=== PATIENT | female | born 1955 | race Caucasian/White ===

== ENCOUNTER 2016-12-03 22:59 | Inpatient (IN) | payer OTHER ==
[~2016-12-03] VITALS: Ht 160 cm; Wt 75.0 kg
[~2016-12-03 22:59] MED LIST: AMBIEN10 MG PO; COL100 PO; LEVOTHYROXINE0.1 M2 PO; NOR10T PO; NORCO1 TAB PO; PREVACID15 MG PO; ZOCOR10 MG PO
[2016-12-04 02:26] LABS: BASOPHIL % 0.1 % (0-2); PLATELET COUNT 232 x10^3mcL (130-400); RED CELL DISTRIBUTION WIDTH 13.6 % (11.5-14.5)
[2016-12-04 02:26] LABS: microscopic required? YES; urine erythrocyte 2+ (NEGATIVE)
[2016-12-04 02:33] LABS: CARBON DIOXIDE 31.2 mmol/L (21-32); CHLORIDE SERUM 102 mmol/L (98-107); CREATININE SERUM 0.7 mg/dL (0.6-1.0); GFR1 > 60 mL/min; GLUCOSE SERUM 122 mg/dL (74-106); POTASSIUM SERUM 3.5 mmol/L (3.5-5.1); SODIUM SERUM 140 mmol/L (136-145)
[2016-12-04 02:37] LABS: ALBUMIN 3.9 g/dL (3.4-5.0); ALKALINE PHOSPHATASE 78 U/L (46-116); ALT/SGPT 23 U/L (14-59); AST/SGOT 20 U/L (15-37); BILIRUBIN TOTAL 0.63 mg/dL (0.20-1.00); LIPASE 78 IU/L (73-393); TOTAL PROTEIN, SERUM 7.2 g/dL (6.4-8.2)
[2016-12-04 02:39] LABS: AMYLASE 23 U/L (25-115)
[2016-12-04 07:06] LABS: CHOLESTEROL/HDL RATIO 3.1
[2016-12-04 07:10] LABS: T3 TOTAL 0.95 ng/mL
[2016-12-04 07:13] LABS: FREE T4 1.1 ng/dL (0.76-1.46); FREE THYROXINE INDEX 3.9 ug/dL (1.4-4.5); T4(THYROXINE) 10.5 ug/dL (4.7-13.3)
[2016-12-04 09:05] VITALS: BP 141/75
[2016-12-04 09:23] VITALS: Ht 160 cm; Wt 75.0 kg
[2016-12-04 13:21] VITALS: BP 122/83
[2016-12-04 17:14] VITALS: BP 132/71
[2016-12-04 21:37] VITALS: BP 141/88
[2016-12-05 06:04] VITALS: BP 135/76
[2016-12-05 07:13] LABS: BASOPHIL % 0.5 % (0-2); PLATELET COUNT 185 x10^3mcL (130-400); RED CELL DISTRIBUTION WIDTH 13.9 % (11.5-14.5)
[2016-12-05 07:26] LABS: CALCIUM 8.3 mg/dL (8.5-10.1); CARBON DIOXIDE 26.7 mmol/L (21-32); CHLORIDE SERUM 108 mmol/L (98-107); CREATININE SERUM 0.7 mg/dL (0.6-1.0); GFR1 > 60 mL/min; GLUCOSE SERUM 80 mg/dL (74-106); POTASSIUM SERUM 3.9 mmol/L (3.5-5.1); SODIUM SERUM 142 mmol/L (136-145)
[2016-12-05 10:39] VITALS: BP 133/75
[2016-12-05 13:47] VITALS: BP 140/77
[2016-12-05 18:54] VITALS: BP 135/73
[2016-12-05 22:38] VITALS: BP 147/104
[2016-12-05 22:39] VITALS: BP 161/84
[2016-12-06 06:15] VITALS: BP 156/80
[2016-12-06 06:58] LABS: BASOPHIL % 0.5 % (0-2); PLATELET COUNT 203 x10^3mcL (130-400); RED CELL DISTRIBUTION WIDTH 13.6 % (11.5-14.5)
[2016-12-06 08:11] LABS: CALCIUM 8.2 mg/dL (8.5-10.1); CARBON DIOXIDE 24.4 mmol/L (21-32); CHLORIDE SERUM 108 mmol/L (98-107); CREATININE SERUM 0.6 mg/dL (0.6-1.0); GFR1 > 60 mL/min; GLUCOSE SERUM 81 mg/dL (74-106); MAGNESIUM 1.7 mg/dL (1.8-2.4); PHOSPHOROUS 3.2 mg/dL (2.5-4.9); POTASSIUM SERUM 3.8 mmol/L (3.5-5.1); SODIUM SERUM 142 mmol/L (136-145)
[2016-12-06 10:35] VITALS: BP 123/76
[2016-12-06] MEDS ORDERED: MIRALAX17 GM/Dose PO (13:08)
[2016-12-06] MEDS ORDERED: DUCODYL5 MG PO (13:12)
[2016-12-06 13:36] VITALS: BP 123/76
== END 2016-12-06 15:05 | disposition home or self-care (01) | DRG 247 ==
LOC: ED 22:59 → DU 12-04 05:54
PROVIDERS: Emergency Medicine; Family Medicine; Internal Medicine; ADMIT Family Medicine
PROC: 0DBN8ZZ Excision of Sigmoid Colon, Via Natural or Artificial Opening Endoscopic (ICD-10-PCS; 2016-12-06)
PROC: 0DBH8ZZ Excision of Cecum, Via Natural or Artificial Opening Endoscopic (ICD-10-PCS; principal; 2016-12-06 08:00)
PROC: 0DBK8ZZ Excision of Ascending Colon, Via Natural or Artificial Opening Endoscopic (ICD-10-PCS; 2016-12-06 08:00)
PROC: 0DBF8ZZ Excision of Right Large Intestine, Via Natural or Artificial Opening Endoscopic (ICD-10-PCS; 2016-12-06 08:00)
DX: K56.41 Fecal impaction (principal); F11.20 Opioid dependence, uncomplicated; I10 Essential (primary) hypertension; N39.0 Urinary tract infection, site not specified; K57.90 Diverticulosis of intestine, part unspecified, without perforation or abscess without bleeding; D12.5 Benign neoplasm of sigmoid colon; D12.0 Benign neoplasm of cecum; D12.2 Benign neoplasm of ascending colon; D12.4 Benign neoplasm of descending colon; E78.00 Pure hypercholesterolemia, unspecified; E89.0 Postprocedural hypothyroidism; M79.7 Fibromyalgia; M19.90 Unspecified osteoarthritis, unspecified site; M54.5 Low back pain; G89.29 Other chronic pain; Z79.891 Long term (current) use of opiate analgesic; Z87.891 Personal history of nicotine dependence; Z68.29 Body mass index [BMI] 29.0-29.9, adult
CPT/HCPCS: 45378; 83880; 84439; J1200; J1610; J1956; J2250; J2270; J2310; J2405; J3010; J3490; J7030; Q0092; Q0163; Q9966; Q9967

== ENCOUNTER 2018-08-19 13:42 | Inpatient (IN) | payer OTHER ==
[~2018-08-19] VITALS: Ht 160 cm; Wt 76.8 kg
[~2018-08-19 13:42] MED LIST changes: +DUCODYL5 MG PO; +MIRALAX17 GM/Dose PO
[2018-08-19 13:49] VITALS: Ht 160 cm; Wt 76.8 kg
[2018-08-19 14:24] LABS: BASOPHIL % 0.6 % (0-2); PLATELET COUNT 244 x10^3mcL (130-400)
[2018-08-19 14:26] LABS: RED CELL DISTRIBUTION WIDTH 14.8 % (11.5-14.5)
[2018-08-19 14:36] LABS: CALCIUM 9.2 mg/dL (8.5-10.1); CARBON DIOXIDE 26.6 mmol/L (21-32); CHLORIDE SERUM 104 mmol/L (98-107); CREATININE SERUM 0.8 mg/dL (0.6-1.0); GFR1 > 60 mL/min; GLUCOSE SERUM 98 mg/dL (74-106); POTASSIUM SERUM 3.6 mmol/L (3.5-5.1); SODIUM SERUM 139 mmol/L (136-145)
[2018-08-19 14:41] LABS: ALKALINE PHOSPHATASE 88 U/L (46-116); ALT/SGPT 43 U/L (14-59); AST/SGOT 24 U/L (15-37); BILIRUBIN TOTAL 0.4 mg/dL (0.20-1.00); TOTAL PROTEIN, SERUM 7.8 g/dL (6.4-8.2)
[2018-08-19 16:36] LABS: MAGNESIUM 2.2 mg/dL (1.8-2.4); PHOSPHOROUS 3.8 mg/dL (2.5-4.9)
[2018-08-19 16:37] LABS: CHOLESTEROL/HDL RATIO 2.8; T3 TOTAL 0.67 ng/mL
[2018-08-19 16:42] LABS: FREE T4 0.96 ng/dL (0.76-1.46); T4(THYROXINE) 8.9 ug/dL (4.7-13.3)
[2018-08-19 17:07] VITALS: BP 147/81
[2018-08-19 21:14] VITALS: BP 99/61
[2018-08-20 05:28] VITALS: BP 108/61
[2018-08-20 07:10] LABS: CALCIUM 8.8 mg/dL (8.5-10.1); CARBON DIOXIDE 27.2 mmol/L (21-32); CHLORIDE SERUM 106 mmol/L (98-107); CREATININE SERUM 0.8 mg/dL (0.6-1.0); GFR1 > 60 mL/min; GLUCOSE SERUM 83 mg/dL (74-106); MAGNESIUM 1.9 mg/dL (1.8-2.4); PHOSPHOROUS 4.3 mg/dL (2.5-4.9); POTASSIUM SERUM 4.5 mmol/L (3.5-5.1); SODIUM SERUM 142 mmol/L (136-145)
[2018-08-20 07:28] LABS: BASOPHIL % 0.8 % (0-2); PLATELET COUNT 225 x10^3mcL (130-400)
[2018-08-20 08:12] VITALS: BP 148/71
[2018-08-20] MEDS ORDERED: NITROSTAT0.4 MG SL (10:44)
[2018-08-20 10:50] VITALS: BP 148/71
== END 2018-08-20 13:08 | disposition home or self-care (01) | DRG 199 ==
LOC: ED 13:42 → DU 15:41
PROVIDERS: Emergency Medicine; ADMIT Internal Medicine
DX: I10 Essential (primary) hypertension (principal); E78.5 Hyperlipidemia, unspecified; M06.9 Rheumatoid arthritis, unspecified; M79.7 Fibromyalgia; Z87.891 Personal history of nicotine dependence; Z68.25 Body mass index [BMI] 25.0-25.9, adult
CPT/HCPCS: 83880; 84439; J3490; Q0092

== ENCOUNTER 2020-01-11 11:46 | Inpatient (IN) | payer OTHER ==
[~2020-01-11] VITALS: Ht 170.2 cm; Wt 75.7 kg
[~2020-01-11 11:46] MED LIST changes: +NITROSTAT0.4 MG SL
[2020-01-11 11:49] VITALS: Ht 170.2 cm; Wt 75.7 kg
--- NOTE | 2020-01-11 12:05 | NUR ---
[facility] BEDSIDE FOR EKG
--- NOTE | 2020-01-11 12:08 | NUR ---
PT BIB DAUGHTER C/O CHEST PAIN X 3DAYS THAT HAS WORSENED TODAY. PT REPORTS "I HAVE BEEN HAVING THIS ISSUE FOR SOME YEARS NOW. IT FEELS LIKE A JOLT/STABBING LIKE SENSATION. I TOOK ONE NITRO PILL 0.4MG 1HR BEFORE I GOT HERE AND ITS NOT HELPING". PT DENIES ANY N/V/D OR FURTHER INJURY AT THIS TIME. PLACED ON FULL CM, NSR NOTED. IV ESTBALISHED TO LAC. AWAITING MD TAVERAS. WILL CONTINUE TO MONITOR.
--- NOTE | 2020-01-11 12:15 | NUR ---
MD MARLOW AT [facility] OR [facility] AT THIS TIME.
[2020-01-11 12:38] LABS: BASOPHIL % 0.8 % (0-2); PLATELET COUNT 271 x10^3mcL (130-400)
[2020-01-11 12:40] LABS: RED CELL DISTRIBUTION WIDTH 14.9 % (11.5-14.5)
--- NOTE | 2020-01-11 12:42 | NUR ---
MEDIATED PT PER MD ORDERS, PLEASE SEE EMR. PT AMUBLATED TO RESTROOM WITH STEADY GAIT. NO DISTRESS NOTED. WILL CONTINUE TO MONITOR.
--- NOTE | 2020-01-11 13:21 | NUR ---
MEDICATED PT PER MD ORDERS, PLEASE SEE EMR. WILL CONTINUE TO MONITOR.
[2020-01-11 13:26] LABS: ALBUMIN 3.8 g/dL (3.4-5.0); ALKALINE PHOSPHATASE 73 U/L (46-116); ALT/SGPT 26 U/L (14-59); AST/SGOT 20 U/L (15-37); BILIRUBIN TOTAL 0.3 mg/dL (0.20-1.00); CALCIUM 9.1 mg/dL (8.5-10.1); CARBON DIOXIDE 25.4 mmol/L (21-32); CHLORIDE SERUM 106 mmol/L (98-107); CREATININE SERUM 0.8 mg/dL (0.6-1.0); GFR1 > 60 mL/min; GLUCOSE SERUM 100 mg/dL (74-106); LIPASE 116 IU/L (73-393); POTASSIUM SERUM 3.7 mmol/L (3.5-5.1); SODIUM SERUM 143 mmol/L (136-145); TOTAL PROTEIN, SERUM 7.1 g/dL (6.4-8.2)
--- NOTE | 2020-01-11 13:45 | NUR ---
MD MARLOW AT BEDSIDE AT THIS TIME DISCUSSING PLAN OF CARE. AWAITING FURTHER ORDERS.
[2020-01-11] MEDS ORDERED: NITROGLYCERIN0.4 MG SL (13:47)
[2020-01-11] MEDS ORDERED: SYN15 PO (13:47)
[2020-01-11] MEDS ORDERED: NORCO 10-325 T1 EACH PO (13:47)
[2020-01-11 14:53] VITALS: BP 133/77
--- NOTE | 2020-01-11 14:53 | NUR ---
RECEIVED FROM ER VIA [facility]AILEY PRITCHETT. WALKED FROM HALLWAY TO BED WITH MINIMAL ASSISTANCE. NO SOB NOTED. TELE# [address], NSR WITH DEPRESSED T WAVE. BP 133/77, HR 67, RR 18, O2SAT 98% ON ROOM AIR. STATED CHEST PAIN SIBSIDED BUT STILL HAVING SHARP PAIN INTERMITTENTLY 4/10 ON PAIN SCALE. LUNG SOUND CTA. ABD SOFT AND ACTIVE, LAST BM THIS MORNING. STATED VOIDS FREELY. NO EDEMA OR SKIN BREAKDOWN NOTED. S/L TO LAC INTACT AND PATENT. ORIENTING TO ROOM ENVIRONMENT. CALL LIGHT PLACED WITHIN EASY REACH. SIDERAILS UP X2.
[2020-01-11 14:58] LABS: PHOSPHOROUS 3.2 mg/dL (2.5-4.9)
[2020-01-11 15:01] LABS: CHOLESTEROL/HDL RATIO 4.3
[2020-01-11 15:05] LABS: FREE T4 1.22 ng/dL (0.76-1.46); FREE THYROXINE INDEX 3.3 ug/dL (1.4-4.5); T3 TOTAL 1.05 ng/mL; T4(THYROXINE) 10.7 ug/dL (4.7-13.3)
[2020-01-11 15:08] LABS: MAGNESIUM 2.1 mg/dL (1.8-2.4)
--- NOTE | 2020-01-11 15:20 | NUR ---
MORPHINE 2MG IVP GIVEM FOR CHEST PAIN, WILL CONTINUE TO MONITOR.
[2020-01-11 16:14] VITALS: BP 144/79
--- NOTE | 2020-01-11 18:00 | NUR ---
DENIES CHEST PAIN AT THIS TIME. MADE AWARE OF NEXT TROPONIN SCHEDULED AT 2030HRS. CARDIAC DIET DINNER PROVIDED. S/L TO LAC INTACT AND PATENT.
--- NOTE | 2020-01-11 19:11 | NUR ---
PT RECEIVED FROM AM NURSE. PT A/O X4, ABLE TO MAKE NEEDS KNOWN. TELE #1, NSR, PT ADMITTED FOR CP, PT C/O 02/15 CP, WILL MEDICATE W/ PRN PAIN MED. PULSES PALPABLE, NO EDEMA PRESENT. BREATHING IS EVEN AND UNLABORED ON RA, NO RESP DISTRESS NOTED. ABD SOFT AND NONDISTENDED, DENIES ANY N/V. VOIDS FREELY, BRP. AMBULATORY W/ STEADY GAIT. SKIN IS WARM AND DRY, INTACT. SL TO LAC, PATENT AND INTACT, SITE WNL. NO ACUTE DISTRESS NOTED. BED IN LOWEST SETTING, SIDE RAILS UP X2, CALL LIGHT WITHIN REACH. WILL CONT TO MONITOR.
[2020-01-11] MEDS ORDERED: AMLODIPINE BES1 TAB PO (19:21)
[2020-01-11] MEDS ORDERED: NOR5 PO (19:22)
--- NOTE | 2020-01-11 20:02 | NUR ---
PT C/O 7/10 CP, PRN MORPHINE IVP GIVEN PER EMAR. NO ACUTE DISTRESS NOTED. WILL CONT TO MONITOR.
[2020-01-11 20:30] VITALS: BP 128/70
--- NOTE | 2020-01-12 00:10 | NUR ---
PT RESTING IN BED WITH EYES CLOSED, BUT IS EASILY AROUSABLE. BREATHING IS EVEN AND UNLABORED, NO RESP DISTRESS NOTED. PT C/O 7/10 CP, PRN MORPHINE IVP GIVEN PER EMAR. SL TO LAC INTACT. NO ACUTE DISTRESS NOTED. CALL LIGHT WITHIN REACH. WILL CONT TO MONITOR.
[2020-01-12 05:25] VITALS: BP 127/75
--- NOTE | 2020-01-12 05:53 | NUR ---
PT SLEPT WELL THROUGHOUT THE EVENING. BREATHING IS EVEN AND UNLABORED, NO RESP DISTRESS NOTED. PT C/O 7-8/10 CP, PRN MORPHINE IVP GIVEN PER EMAR. IV TO LAC INTACT. NO ACUTE CHANGES ENCOUNTERED DURING SHIFT. ALL NEEDS MET AND ANTICIPATED. CALL LIGHT WITHIN REACH. WILL ENDORSE CARE TO AM NURSE.
[2020-01-12 06:41] LABS: BASOPHIL % 0.6 % (0-2); PLATELET COUNT 242 x10^3mcL (130-400)
[2020-01-12 06:47] LABS: RED CELL DISTRIBUTION WIDTH 15.1 % (11.5-14.5)
[2020-01-12 06:58] LABS: CARBON DIOXIDE 28.9 mmol/L (21-32); CHLORIDE SERUM 105 mmol/L (98-107); CREATININE SERUM 0.8 mg/dL (0.6-1.0); GFR1 > 60 mL/min; GLUCOSE SERUM 86 mg/dL (74-106); POTASSIUM SERUM 3.9 mmol/L (3.5-5.1); SODIUM SERUM 140 mmol/L (136-145)
[2020-01-12 07:09] LABS: CALCIUM 8.7 mg/dL (8.5-10.1)
--- NOTE | 2020-01-12 07:35 | NUR ---
RECEIVED PT FROM NIGHT NURSE. AAOX4, EYES OPEN. SAFETY PRECAUTIONS IN PLACE. BED IN LOW POSITION, CALL LIGHT AT BEDSIDE. WILL CONTINUE TO MONITOR.
--- NOTE | 2020-01-12 08:00 | NUR ---
RECEIVED PATIENT FROM PREVIOUS SHIFT ALERT AND ORIENTED TIMES FOUR. PATIENT OVIDIO HAD INTERMITTANT PAIN TO THE CHEST AND IN THE MIDDLE THAT FEELS LIKE A STABBING PAIN. SHE STATES THOUGH SHE IS FEELING BETTER NOW AND HAS REQUESTED PAIN MEDICATION THROUGHOUT THE NIGHT AND THIS HAS HELPED WITH THE PATIENT. SHE HAS TOLERATED DIET AND HAS BEEN AMBULATORY WITH SOME TRACE EDEMA TO THE LOWER EXTREMITIES AND HAS HX OF THYROID DISEASE, HYPERTENSION, ARTHRITIS, AND CHOLECYSECTOMY. PATIENT RIVAS BEEN NORMAL SINUS ON THE MONITOR AND HAS SO FAR TWO NEGATIVE TROPONINS. SHE HAS NOTED CHOLESTEROL OF 278 AND THE AIC IS AT 5.1. PATIENT FOR ECHO TODAY. WILL CONTINUE TO MONITOR INDICATED. SHE STATES SHE WANTS TO GO HOME.
[2020-01-12 09:19] VITALS: BP 110/68
[2020-01-12] MEDS ORDERED: LIPI20 PO (10:17)
--- NOTE | 2020-01-12 11:59 | NUR ---
HUMAN RESOURCES CLERK AT BEDSIDE.
--- NOTE | 2020-01-12 12:40 | NUR ---
TOLERATED THE ECHO AND SO FAR NO COMPLAINTS OF CHEST PAIN AT THIS TIME. AWAITING RESULTS.
[2020-01-12 13:42] VITALS: BP 126/71
--- NOTE | 2020-01-12 15:52 | NUR ---
Plan for patient for discharge home today when cleared by Dr Johnson. Patient is anxious to go home.
--- NOTE | 2020-01-12 17:06 | NUR ---
PT C/O PAIN AND WAS MANAGED PRN. NORCO PO WAS GIVEN PRN ORDERED @0929 FOR CHEST PAIN 03/18. LATER WAS REASSESSED AT 01/16. NORCO WAS GIVEN AGAIN @1410 FOR PAIN 03/18. LATER WAS REASSESSED AT 10/16. PT RESPONDED WELL TO MEDICATIONS AND WAS RESTING COMFORTABLY. WILL CONTINUE TO MONITOR.
[2020-01-12 17:35] VITALS: BP 110/62
--- NOTE | 2020-01-12 18:15 | NUR ---
PER DR GOODRICH -CARDIOLOGY PATIENT CAN BR DC HOME TODAY. NOTIFIED CHARLES AND SHE SAID THAT SHE WILL DC PATIENT HOME TODAY. ATTENDING NURSE SANA MADE AWARE.
[2020-01-12 18:23] VITALS: BP 110/62
--- NOTE | 2020-01-12 19:34 | NUR ---
PT DISCHARGED AT 1900. IV REMOVED AND SITE WNL. ESCORTED TO ENTRANCE BY MICHELLE.
== END 2020-01-12 19:00 | disposition home or self-care (01) | DRG 198 ==
LOC: ED 11:46 → DU 14:11
PROVIDERS: Emergency Medicine; ADMIT Family Medicine; ATTEND Family Medicine
DX: I25.10 Atherosclerotic heart disease of native coronary artery without angina pectoris (principal); I31.9 Disease of pericardium, unspecified; E03.9 Hypothyroidism, unspecified; I10 Essential (primary) hypertension; E78.5 Hyperlipidemia, unspecified; E05.00 Thyrotoxicosis with diffuse goiter without thyrotoxic crisis or storm; G89.4 Chronic pain syndrome; M79.7 Fibromyalgia; M19.90 Unspecified osteoarthritis, unspecified site; R07.89 Other chest pain; Z88.1 Allergy status to other antibiotic agents; Z88.6 Allergy status to analgesic agent; Z90.49 Acquired absence of other specified parts of digestive tract; Z82.49 Family history of ischemic heart disease and other diseases of the circulatory system; Z79.899 Other long term (current) drug therapy
CPT/HCPCS: 84439; 85378; C9113; G0378; J2270; J2405; Q0092